=== PATIENT | male | born 1990 | race African-American/Black ===

== ENCOUNTER 2019-09-03 14:56 | Emergency (ER) | payer OTHER ==
[~2019-09-03] VITALS: Ht 167.6 cm; Wt 61.2 kg
[~2019-09-03 14:56] MED LIST: DARVOCET-N 1001 EACH PO; DUONEB 2.5-0.5 M3 ML INH; FLEXERIL; IBUPROFEN 400400 M2; IBUPROFEN 600600 M1 PO; NOHOMEMEDICATIONS; NORCO 5-325 TA1 EACH PO; NORCO 7.5-3251 EACH PO; TESSALON PERLE100 MG PO; ULTRAM 50MG TAB50 MG PO; ZPAK PO
[2019-09-03] MEDS ORDERED: TRAMADOL 50 MG50 MG PO (16:38)
[2019-09-03] MEDS ORDERED: KEFLEX500 M1 PO (16:38)
[2019-09-03 17:35] VITALS: BP 132/85
== END 2019-09-03 17:35 | disposition home or self-care (01) ==
LOC: ER 14:56
DX: S61.212A Laceration without foreign body of right middle finger without damage to nail, initial encounter (principal); W26.8XXA Contact with other sharp object(s), not elsewhere classified, initial encounter; Y93.89 Activity, other specified; Y92.89 Other specified places as the place of occurrence of the external cause; Y99.8 Other external cause status